=== PATIENT | female | born 1990 | race Caucasian/White ===

== ENCOUNTER 2017-01-11 23:05 | Emergency (ER) | payer OTHER ==
[~2017-01-11] VITALS: Ht 157.5 cm; Wt 107.0 kg
[~2017-01-11 23:05] MED LIST: 12 HOUR DECONG120 M1 PO; Chromagen, Feogen, M PO; FLONASE16 G1 BOTH NARES; LEXAPRO20 MG PO; MACROBID100 MG PO; MUCINEX D ER T1 EACH PO; NAPROSYN500 MG PO; SENOKOT S,PE1 TABLET PO; TESSALON PERLE100 MG PO; ZOVIRAX200 MG PO
[2017-01-12 01:08] VITALS: BP 124/75
== END 2017-01-12 01:09 | disposition home or self-care (01) ==
LOC: EME 23:05
DX: J02.0 Streptococcal pharyngitis (principal)
CPT/HCPCS: 99281; 99284; J1100